=== PATIENT | male | born 1955 | race Caucasian/White ===

== ENCOUNTER 2018-04-09 15:09 | Emergency (ER) | payer MEDICARE, BC ==
[2018-04-09 15:16] VITALS: RESP 16
[2018-04-09] MEDS ORDERED: DIPH,PERTUS(ACELL)TETVAC-LF 0.5 ML VIAL IM ONE (15:39)
[2018-04-09] MEDS ORDERED: LIDOCAINE 1% INJ 10MG/ML (20 ML MDV) SQ STA (15:43)
--- NOTE | 2018-04-09 15:50 | ED ---
Fall HPI - General Chief Complaint: Fall Stated Complaint: Fall Time Seen by Provider: 04/09/18 15:20 Source: patient, RN notes reviewed, old records reviewed Mode of arrival: EMS - History of Present Illness Initial Comments: Patient is a 63-year-old male presents emergency Department chief complaint of fall and head injury. He reports he tripped over a rug at a gas station and fell and hit the left side of his scalp. No loss conscious. He does have a history of spinal cord injury and had surgery on his cervical spine. He denies any neck pain at this time. We'll range of motion noted of the neck. He reports he is not on any blood thinners. His tetanus is not up-to-date. - Related Data Allergies Allergy/AdvReac Type Severity Reaction Status Date / Time No Known Allergies Allergy Verified 04/09/18 15:16 Review of Systems ROS Statement: Those systems with pertinent positive or pertinent negative responses have been documented in the HPI. ROS Other: All systems not noted in ROS Statement are negative. Past Medical History Additional Past Medical History / Comment(s): Spinal cord injury History of Any Multi-Drug Resistant Organisms: None Reported Additional Past Surgical History / Comment(s): spinal Past Psychological History: No Psychological Hx Reported Smoking Status: Current every day smoker Past Alcohol Use History: Daily, Heavy Past Drug Use History: None Reported General Exam - General Exam Comments Initial Comments: Alert and oriented 63-year-old male. No acute distress. Limitations: no limitations Head exam: Present: atraumatic, normocephalic. Absent: normal inspection ( Patient has a irregular personally 4 cm laceration over the left eyebrow.) Eye exam: Present: normal appearance ENT exam: Present: normal exam, mucous membranes moist Neck exam: Present: normal inspection, full ROM. Absent: tenderness, meningismus, lymphadenopathy Respiratory exam: Present: normal lung sounds bilaterally. Absent: respiratory distress, wheezes, rales, rhonchi, stridor Cardiovascular Exam: Present: regular rate, normal rhythm, normal heart sounds. Absent: systolic murmur, diastolic murmur, rubs, gallop, clicks GI/Abdominal exam: Present: soft, normal bowel sounds. Absent: distended, tenderness, guarding, rebound, rigid Extremities exam: Present: normal inspection, full ROM, normal capillary refill. Absent: tenderness, pedal edema, joint swelling, calf tenderness Back exam: Present: normal inspection Neurological exam: Present: alert, oriented X3, CN II-XII intact Expanded Patient oriented to: Present: person, place, time Speech: Present: fluid speech Cranial nerves: EOM's Intact: Normal Cerebellar function: Finger to Nose: Normal Upper motor neuron: Micheal Neglect: Normal, Pronator Drift: Normal, Babinski Sign : Normal, Sensory Extinction: Normal Sensory exam: Upper Extremity Light Touch: Normal Motor strength exam: RUE: 5, LUE: 5, RLE: 5, LLE: 5 Eye Response: (4) open spontaneously Motor Response: (6) obeys commands Verbal Response: (5) oriented Robby Total: 15 Psychiatric exam: Present: normal affect, normal mood Skin exam: Present: warm, dry, intact, normal color. Absent: rash Course Vital Signs 04/09/18 15:12 Temperature 97.8 F Pulse Rate 63 Respiratory 16 Rate Blood Pressure 174/86 O2 Sat by Pulse 99 Oximetry Procedures - Laceration Laceration #1 Size (cm): 4 Description: stellate, flap Depth: simple, single layer Anesthetic Used: lidocaine 1% Anesthesia Technique: local infiltration Amount (mls): 5 Pre-repair: wound explored (5) Type of Sutures: nylon Size of Sutures: 6-0 Number of Sutures: 6 Technique: simple, interrupted Patient Tolerated Procedure: well, no complications Medical Decision Making - Medical Decision Making This patient's a 63-year-old male presents after a fall. He has an irregular laceration over the left eyebrow. Does have history of neck surgery. His CT of the brain and cspine completed. Negative for any acute process. Evidence of his previous surgeries. He has had no blood thinners. Patient laceration was thoroughly irrigated and cleaned with iodine. Laceration was closed with approximately 6 sutures. I discussed monitoring for infection including redness swelling or drainage. I discussed head injury instructions as well. Family understands treatment plan will comply. Return parameters were discussed. - Radiology Data Radiology results: report reviewed No acute intracranial normality seen. Scalp injury to the left frontal and left periorbital region with overlying dressing. No acute fracture or malalignment of cervical spine. Changes of dish either posttraumatic or post surgical change along the posterior elements of the mid to lower cervical spine prior C4-C5 ACDF. Disposition Clinical Impression: Fall, Head injury, Forehead laceration Disposition: HOME SELF-CARE Condition: Good Instructions: Laceration (ED), Fall Prevention for Older Adults (ED) Additional Instructions: Please return to the emergency room in 8-10 days to have sutures removed. Please leave wound covered for the first 24-48 hours and then leave open to air after that time. Please use clean soap and water to clean the suture area to prevent scabbing over the top of your sutures. Please watch for any signs of infection which may include but not limited to increased pain, swelling, redness , fever or chills. Please return to the emergency room if any signs of infection do occur. Please return to the emergency room for any other concerns or complications. Patient should be monitored for the next 24 hours is any signs of altered mental status or vomiting return to emergency department for further evaluation. Is patient prescribed a controlled substance at d/c from ED?: No When asked, does pt state using other controlled substances?: No If prescribed controlled substance>3 days was MAPS reviewed?: No If opioid is for acute pain is fill amount 7 days or less?: No If Rx opioid, was Start Talking consent form obtained?: No Referrals: Alvarado Beyer DO [Primary Care Provider] - 1-2 days Time of Disposition: 16:55
--- NOTE | 2018-04-09 16:12 | CT ---
EXAMINATION TYPE: CT brain camila hunter DATE OF EXAM: 04/09/2018 COMPARISON: None HISTORY: 63-year-old male with fall and head injury today, pain. CT DLP: 1303.1 mGycm Automated exposure control for dose reduction was used. Technique: Examination of the head was done in axial plane without intravenous contrast. Coronal and sagittal reconstructions performed. CT of the cervical spine was obtained in axial plane without intravenous injection of contrast mater ial. Coronal and sagittal reformatted images were obtained from the axial views for evaluation of f ractures, spinal alignment and canal. FINDINGS: Head: There is no evidence of acute intracranial hemorrhage, acute ischemic changes, mass, mass-effect, or extra-axial fluid collection. There is no effacement of cerebral sulci or basal subarachnoid cister ns. There is no hydrocephalus. There is no midline shift. Trotter-white matter distinction is preserv ed. Dense cerumen within the bilateral external auditory canals. Some dressing is placed along the left f rontal and temporal region and left lateral periorbital region. No underlying calvarial fracture. Orb its and globes appear intact. Visualized paranasal sinuses and mastoid air cells are clear. Cervical spine: Emphysematous change in the visualized upper lungs. ACDF hardware at C4-C5 with bridging anterior endplate spondylosis from C3 through C6 levels. Some discontinuous anterior endplate spondylosis at C2-C3 and C6-C7. Bridging anterior plate spondylo sis resumes at C7 down to at least C3 and. Chronic appearing deformity to the posterior elements in the mid to lower cervical spine possibly pos ttraumatic or postsurgical. There is some partially bony ankylosis along the facet joints such as at C3-C5 levels. Reversal of the normal cervical lordosis along the lower cervical spine both preserved alignment. No high-grade canal compromise is seen. Uncovertebral joint and facet arthropathy is present. This contributes to moderate left and mild right neuroforaminal stenosis at C3-C4, moderate left and mild right neural foraminal stenosis at C5-C6, mild left greater than right at C6/C7. No acute fracture of the cervical spine. Sagittal and coronal reformatted images confirm above findings. COMBINED IMPRESSION: 1. No acute intracranial abnormality seen. There is scalp injury left frontal temporal and left perio rbital region with overlying dressing. 2. No acute fracture or malalignment of the cervical spine. Changes of DISH and either post traumatic or postsurgical change along the posterior elements of the mid to lower cervical spine and prior C4- C5 ACDF.
[2018-04-09 17:03] VITALS: BP 138/70; PULSE 79; TEMP 98
== END 2018-04-09 17:02 | disposition home or self-care (01) ==
LOC: EC 15:09
DX: S01.81XA Laceration without foreign body of other part of head, initial encounter (principal); R40.2142 Coma scale, eyes open, spontaneous, at arrival to emergency department; R40.2252 Coma scale, best verbal response, oriented, at arrival to emergency department; R40.2362 Coma scale, best motor response, obeys commands, at arrival to emergency department; F17.200 Nicotine dependence, unspecified, uncomplicated; Z87.828 Personal history of other (healed) physical injury and trauma; Z23 Encounter for immunization; W01.0XXA Fall on same level from slipping, tripping and stumbling without subsequent striking against object, initial encounter; Y92.524 Gas station as the place of occurrence of the external cause
CPT/HCPCS: 72125; 70450; 90715; 99284; 12013; 90471; J2001

== ENCOUNTER → 2020-07-25 | Outpatient (CLI) | payer MEDICARE, BC ==
--- NOTE | 2020-07-25 14:39 | US ---
EXAMINATION TYPE: US duplex aorta DATE OF EXAM: 07/25/2020 COMPARISON: NONE CLINICAL HISTORY: Z136. EXAM MEASUREMENTS: Abdominal Aorta: Proximal: 1.8cm Mid: 1.5cm Distal: 1.1cm Bifurcation: Rt:1.0cm Left: 0.7cm Proximal portion poorly visualized due to overlying bowel gas. Calcifications noted throughout, no evidence of AAA. IMPRESSION: No abdominal aortic aneurysm.
== END | disposition home or self-care (01) ==
LOC: RADUSWWP 09:32
PROVIDERS: ATTEND Family Medicine
DX: Z13.6 Encounter for screening for cardiovascular disorders (principal)
CPT/HCPCS: 93979